=== PATIENT | female | born 1960 | race Caucasian/White ===

== ENCOUNTER 2017-06-13 03:14 | Emergency (ER) | payer MEDICAID, MEDICARE, OTHER ==
[~2017-06-13 03:14] MED LIST: MECL-111 PO
[2017-06-13 04:02] VITALS: BP 133/82
== END 2017-06-13 04:07 | disposition home or self-care (01) ==
LOC: ER 03:14
DX: H57.8 Other specified disorders of eye and adnexa (principal); Z88.2 Allergy status to sulfonamides; Z79.899 Other long term (current) drug therapy
CPT/HCPCS: 99282; 99283